=== PATIENT | male | born 1965 | race Hispanic/Latino ===

== ENCOUNTER 2017-06-23 06:26 | Emergency (ER) | payer SELFPAY ==
[2017-06-23 06:26] VITALS: BMI 35.6
[2017-06-23 06:45] VITALS: RESP 20
[2017-06-23] MEDS ORDERED: Naproxen 550 mg Tab PO STA (07:11)
[2017-06-23] MEDS ORDERED: Naproxen 550 mg Tab PO ONE (07:18)
--- NOTE | 2017-06-23 07:47 | C.PDOC ---
History Of Present Illness Patient is a 51 y/o male who presents to the ED with a complaint of neck pain, lower back pain, and right shoulder pain s/p falling down the stairs last night. Patient reports to have slipped on stairs and fell onto lower back area, hooking right shoulder in the stair rail. Denies any head injuries or LOC. Admits to history of cervical and lumbar spinal surgeries. No other physical complaints at this time. Time Seen by Provider: 06/23/17 07:04 Chief Complaint (Nursing): Back Pain History Per: Patient History/Exam Limitations: no limitations Onset/Duration Of Symptoms: Hrs (last night) Current Symptoms Are (Timing): Still Present Previous Symptoms: Prior Surgery (cervical and lumbar surgeries) Recent travel outside of the [place]: No Past Medical History Reviewed: Historical Data, Nursing Documentation, Vital Signs Vital Signs: Last Vital Signs Temp 98.6 F 06/23/17 08:48 Pulse 75 06/23/17 08:48 Resp 20 06/23/17 08:48 BP 115/78 06/23/17 08:48 Pulse Ox 96 06/23/17 08:48 - Medical History PMH: Anxiety, Arthritis, Back Problems, Gall Bladder Disease, HTN, Hypercholesterolemia Denies: Anemia, Bronchitis, CHF, COPD, HIV, Hyperthyroidism, Hypothyroidism, Chronic Kidney Disease Surgical History: Back Surgery (times 6), Cholecystectomy - [facility] Procedures CORONAR ARTERIOGR-2 CATH (07/01/12) DESTRUC-SHOULDER LES NEC (07/27/98) ESOPHAGEAL DILATION (08/04/00) ESOPHAGOGASTRODUODENOSCOPY [EGD] W/CLOSED BIOPSY (08/04/00) HEMORRHAGE CONTROL NOS (05/28/13) INJECT/INFUSE NEC (12/07/11) LEFT HEART CARDIAC CATH (07/01/12) LT HEART ANGIOCARDIOGRAM (07/01/12) SHOULDER ARTHROPLAST NEC (07/27/98) Family History: States: Unknown Family Hx, DC (brother from a DC at 39 yrs old ) - Social History Hx Tobacco Use: No Hx Alcohol Use: Yes Hx Substance Use: No (Past use) - Immunization History Hx Tetanus Toxoid Vaccination: Yes Hx Influenza Vaccination: No Hx Pneumococcal Vaccination: No Review Of Systems Except As Marked, All Systems Reviewed And Found Negative. Musculoskeletal: Positive for: Neck Pain, Shoulder Pain (right), Back Pain ( lower back) Physical Exam - Physical Exam Appears: In Acute Distress (in mild pain ), Other (anxious) Skin: Normal Color, Warm, Dry Oral Mucosa: Moist Neck: Midline Cervical Tenderness (C6-C7-T1 area), Other (surgical scar to C6-C7 -T1 area) Chest: Symmetrical Cardiovascular: Rhythm Regular, No Murmur Respiratory: Normal Breath Sounds, No Rales, No Rhonchi, No Wheezing Back: Vertebral Tenderness (L4-L5), Other (surgical scar to L4-L5 area) Extremity: Normal ROM (intact to right shoulder), Tenderness (diffusely to right shoulder), No Deformity Neurological/Psych: Oriented x3, Normal Speech, Normal Cognition ED Course And Treatment O2 Sat by Pulse Oximetry: 95 - Other Rad right shoulder X-Ray: Interpreted by Me, Viewed By Me Interpretation: Right shoulder three views. History: Injury. Fall. Comparison : None available. Findings: Moderate narrowing of the right acromioclavicular joint space with joint space narrowing, subchondral sclerosis, and bony hypertrophy. Some heterotopic bone at the superior aspect of the joint space. Glenohumeral joint space appears grossly preserved with some mild joint space narrowing. No evidence for acute displaced fracture or dislocation. Impression : Degenerative changes. If pain persists, consider MRI. cervical spine AP lat X-Ray: Interpreted by Me, Viewed By Me Interpretation: PROCEDURE: Cervical Spine Radiographs. HISTORY: Pain. COMPARISON: None. FINDINGS: BONES: Alignment maintained. No fracture. Dens IntactVertebral bodies maintained in height. 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 Normal alignment is maintained. . DISC SPACES: Intervertebral disc spaces aside from the C5-6 level are maintained. SOFT TISSUES: Normal. No prevertebral soft tissue swelling. OTHER FINDINGS: None. IMPRESSION: No fracture/ dislocation. Partial ankylosis C5-C6. LS spine AP lat X-Ray: Interpreted by Me, Viewed By Me Interpretation: PROCEDURE: Radiographs of the Lumbar Spine. HISTORY: low back pain after fall. COMPARISON: No prior. FINDINGS: BONES: Normal alignment. No listhesis. No fracture. DISC SPACES: Unremarkable. OTHER FINDINGS: None. IMPRESSION: Unremarkable radiographs of the lumbar spine. Progress Note: Flexeril and anaprox adminsitered. Right shoulder XR, cervical spine XR, and lumbar spine XR ordered. Disposition Counseled Patient/Family Regarding: Studies Performed, Diagnosis, Need For Followup, Rx Given - Disposition Referrals: Armen Ambriz III, MD [Staff Provider] - [facility] [Outside] Disposition: HOME/ ROUTINE Disposition Time: 08:30 Condition: STABLE Additional Instructions: FOLLOW UP WITH ORTHOPEDICS WITHIN 1 WEEK IF SYMPTOMS PERSIST USE MEDICATIONS NEEDED RETURN TO ER IF SYMPTOMS WORSEN Prescriptions: Cyclobenzaprine [Flexeril] 10 mg PO BID PRN #15 tab PRN Reason: Muscle Spasm Naproxen 375 mg PO BID PRN #20 tablet PRN Reason: pain Instructions: Low Back Pain (DC), Cervical Muscle Strain (DC), Shoulder Sprain (DC) Forms: [employer] (Lithuanian) Print Language: ALBANIAN - POA Present On Arrival: Falls Or Trauma - Clinical Impression Clinical Impression: Acute cervical sprain, Lumbar sprain, Sprain of right shoulder - Scribe Statement The provider has reviewed the documentation as recorded by the Scribe Nargis Hamilton All medical record entries made by the Scribe were at my direction and personally dictated by me. I have reviewed the chart and agree that the record accurately reflects my personal performance of the history, physical exam, medical decision making, and the department course for this patient. I have also personally directed, reviewed, and agree with the discharge instructions and disposition.
--- NOTE | 2017-06-23 08:22 | RAD ---
Right shoulder three views History: Injury. Fall. Comparison: None available. Findings: Moderate narrowing of the right acromioclavicular joint space with joint space narrowing, subchondral sclerosis, and bony hypertrophy. Some heterotopic bone at the superior aspect of the joint space. Glenohumeral joint space appears grossly preserved with some mild joint space narrowing. No evidence for acute displaced fracture or dislocation. Impression: Degenerative changes. If pain persists, consider MRI.
--- NOTE | 2017-06-23 08:27 | RAD ---
PROCEDURE: Radiographs of the Lumbar Spine. HISTORY: low back pain after fall COMPARISON: No prior. FINDINGS: BONES: Normal alignment. No listhesis. No fracture. DISC SPACES: Unremarkable. OTHER FINDINGS: None. IMPRESSION: Unremarkable radiographs of the lumbar spine.
--- NOTE | 2017-06-23 08:28 | RAD ---
PROCEDURE: Cervical Spine Radiographs. HISTORY: Pain. COMPARISON: None. FINDINGS: BONES: Alignment maintained. No fracture. Dens IntactVertebral bodies maintained in height. 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 Normal alignment is maintained. . DISC SPACES: Intervertebral disc spaces aside from the C5-6 level are maintained. SOFT TISSUES: Normal. No prevertebral soft tissue swelling. OTHER FINDINGS: None. IMPRESSION: No fracture/ dislocation. Partial ankylosis C5-C6.
[2017-06-23 08:50] VITALS: BP 115/78; PULSE 75; TEMP 98.6
[2017-06-23 08:53] VITALS: O2SAT 95
== END 2017-06-23 08:56 | disposition home or self-care (01) ==
LOC: C.ER 06:26
DX: S13.4XXA Sprain of ligaments of cervical spine, initial encounter (principal); S33.5XXA Sprain of ligaments of lumbar spine, initial encounter; S43.401A Unspecified sprain of right shoulder joint, initial encounter; W10.9XXA Fall (on) (from) unspecified stairs and steps, initial encounter; I10 Essential (primary) hypertension; E78.00 Pure hypercholesterolemia, unspecified